=== PATIENT | male | born 1965 | race Caucasian/White ===

== ENCOUNTER 2021-03-06 19:40 | Emergency (ER) | payer OTHER, SELFPAY ==
[2021-03-06 19:49] VITALS: BP 246/128; PULSE 88; RESP 18; TEMP 36.7; O2SAT 96; BMI 35.9
[2021-03-06] MEDS: lidocaine 1% INJ 20 mL INTRADERMA (20:12)
[2021-03-06] MEDS: tetanus-dipt-pertussis 0.5 mL SDV IM (20:13)
--- NOTE | 2021-03-06 20:26 | W.ED.WOUNDLC ---
HPI - Wound/Laceration General: Chief Complaint: Wound/Laceration Stated Complaint: fell, head lac Time Seen by Provider: 03/06/21 19:58 History of Present Illness: HPI narrative: Patient fell on the field striking his forehead on his shotgun most likely has a laceration to his forehead. Denies any loss of consciousness. Said he try to get it stopped bleeding for couple hours. Has no history of hypertension that he is aware of. But did not get his blood pressure checked in years. Onset (ago): hour(s) Location: face Place: outdoors Patient tetanus UTD: No Context: accidental Associated symptoms: Reports no associated symptoms; Denies chills, fever(s), nausea or vomiting Review of Systems Const: Denies: fever(s), chills or body aches Eyes: Denies: change in vision or blurry vision ENMT: Denies: throat pain or nasal congestion Card: Denies: chest pain or dyspnea on exertion Resp: Denies: dyspnea, productive cough or non-productive cough GI: Denies: abdominal pain, nausea or vomiting : Denies: difficulty urinating Musc: Denies: extremity pain Skin/Breast: Reports: other (Laceration to forehead); Denies: rash Neuro: Denies: headache(s), weakness in extremities, sensory changes, lack of coordination, difficulty walking, dizziness, Slurred speech present or difficulty communicating thoughts Psych: Denies: anxiety or depression Geoffrey/Lymph: Denies: easy bruising Physical Exam Const: COMMON NORMALS: no acute distress and patient oriented x3 GENERAL APPEARANCE: cooperative Cardio: COMMON NORMALS: regular rate and regular rhythm RATE: regular rate RHYTHM: regular rhythm Neuro: COMMON NORMALS: patient oriented x3, moves all extremities, no focal motor deficits and no sensory deficits noted Skin: OTHER: 2-1/2 inch slightly irregular vertical laceration right side of his forehead no active bleeding. Procedures Laceration Laceration 1: Site: face Side (If applicable): right Size (cm): 5.5 Description: linear, irregular and clean Depth: simple, single layer Local Anesthetic: lidocaine 1% Pre-repair: wound explored and irrigated extensively Skin layer closed with: other (Ethilon) Size (cm): 5-0 Number of sutures: 4 Technique: simple, interrupted Course Vital Signs: Vital signs: Vital Signs Temperature 98.1 F 03/06/21 19:49 Pulse Rate 88 03/06/21 19:49 Respiratory Rate 18 03/06/21 19:49 Blood Pressure 246/128 03/06/21 19:49 Pulse Oximetry 96 03/06/21 19:49 MDM - Wound/Laceration MDM Narrative: Medical decision making narrative: Discussed blood pressure with patient. Patient says he saw it on the triage vital sign monitoring where that is high. Patient does not want to start any treatment for today. Declines any medication. I talked to him extensively about the need to get blood pressure controlled check blood pressure daily have a primary care provider patient said he is understanding is very kind about it and said he will follow primary care provider this week and he will buy blood pressure cuff and check his blood pressure twice a day still declines medication. Discharge Plan Discharge Patient Disposition: Home Clinical Impression: Laceration, Uncontrolled hypertension Condition: Stable Discharge Orders: Discharge ED (Routine); Ordered 03/06/21 Ordered By: Gustavo Salas Discharge Diet: Usual diet Discharge Activity: Resume usual activity Patient Instructions: Suture Care (ED), Laceration (ED), Hypertension (ED) Activity Restrictions/Additional Instructions: Sutures out in 5 days. Watch for signs and symptoms of infection. Buy blood pressure cuff, check your readings twice a day, write those readings down, follow-up with primary care provider this week with your readings. Coding Level of Care Code ED [employer] Specialist for [employer] Exam Expanded Problem Focused
[2021-03-06 20:31] VITALS: BP 231/122; PULSE 91; RESP 16; O2SAT 95
--- NOTE | 2021-03-06 20:32 | PC.NURSE ---
Dr attempted to treat blood pressure and pt refused stating that he would go on Sunday to establish a PCP and get stitches looked at.
== END 2021-03-06 20:33 | disposition home or self-care (01) ==
PROVIDERS: Emergency Provider Nurse Practitioner Family
DX: S01.81XA Laceration without foreign body of other part of head, initial encounter (principal); I10 Essential (primary) hypertension; W19.XXXA Unspecified fall, initial encounter; Z23 Encounter for immunization
CPT/HCPCS: 12014; 90471; 90715; 99282